=== PATIENT | male | born 1960 | race Caucasian/White ===

== ENCOUNTER 2017-09-28 05:37 | Outpatient (CLI) | payer BC ==
[~2017-09-28] VITALS: Ht 170.2 cm; Wt 72.1 kg
[~2017-09-28 05:37] MED LIST: CLIN150C17 PO; IBUP-16 PO
[2017-09-28] MEDS ORDERED: FLUT9.9S NSEACH (12:29)
== END 2017-09-28 12:30 ==
LOC: PREOP 05:37
PROVIDERS: ATTEND Surgery
DX: Z01.818 Encounter for other preprocedural examination (principal); K92.1 Melena

== ENCOUNTER 2017-10-03 09:39 | Day surgery (SDC) | payer BC ==
[~2017-10-03] VITALS: Ht 170.2 cm; Wt 72.1 kg
[~2017-10-03 09:39] MED LIST changes: +FLUT9.9S NSEACH
--- OUTSIDE RECORDS SUMMARY | 2017-10-03 09:43 | XMS REPORT | Clinical Summary ---
Author Author [facility] Organization [facility] Address Unknown Phone Unavailable Care Team Providers Care House Registry Rn Name Role Phone Roverto Cameron MD PCP Natalie Tran RN 2 Unavailable Tian Hyatt MD Unavailable Luis Fernando Chamberlain MD Unavailable Hope Calix RN Unavailable Unavailable Sj Jacobs RN 2 Unavailable Arthur Busch MD Unavailable [place] APRN Unavailable Mychart, Generic Provider Unavailable Unavailable Source Comments Some departments are not documenting in the electronic medical record. If you do not see the information that you expected, contact Release of Information in the Health Information Management department at [phone] for further assistance in locating additional records.[facility] Allergies Active Allergy Reactions Severity Noted Date Comments Meperidine NAUSEA AND VOMITING Low 10/10/2014 Morphine HIVES Medium 10/02/2014 Current Medications Prescription Sig. Disp. Refills Start End Date Status Date ibuprofen (MOTRIN) 200 mg Take 400 mg by mouth Active tablet every 6 hours as needed for Pain. acetaminophen (TYLENOL) Take 2 Tabs by mouth 30 Tab 1 05/01/20 Active 325 mg tablet every 4 hours as needed. 15 Active Problems Problem Noted Date Infection 04/27/2015 Pilon fracture 10/23/2014 Closed fracture of right tibia and fibula with routine healing 10/03/2014 Overview: - Ortho consulted - EX fix placed 10/02 - Plan for definitive repair 10/23 Closed fracture of left talus with routine healing 10/03/2014 Overview: - Ortho consulted Closed fracture of left tibia with routine healing 10/03/2014 Overview: - David 2 tibial plateau fx - Ortho consulted - EX fix placed 10/02 - Plan for definitive repair 10/23 Family History Medical History Relation Name Comments Heart Failure Father High Cholesterol Father Hypertension Father Stroke Father Arthritis-osteo Mother Relation Name Status Comments Father Mother Social History Tobacco Use Types Packs/Day Years Used Date Never Smoker Smokeless Tobacco: Never Used Tobacco Cessation: Counseling Given: Yes Alcohol Use Drinks/Week oz/Week Comments No 0 Standard 0.0 drinks or equivalent Sex Assigned at Date Recorded Not on file Last Filed Vital Signs Vital Sign Reading Time Taken Blood Pressure 145/83 11/03/2015 9:24 AM CDT Pulse 71 11/03/2015 9:24 AM CDT Temperature 36.3 C (97.3 F) 06/13/2015 9:11 AM GUARD ENTRANCE REGISTRAR Respiratory Rate 16 05/16/2015 2:43 PM GUARD ENTRANCE REGISTRAR Oxygen Saturation 96% 05/01/2015 2:45 PM GUARD ENTRANCE REGISTRAR Inhaled Oxygen - - Concentration Weight 78.5 kg (173 lb) 05/03/2016 9:42 AM GUARD ENTRANCE REGISTRAR Height 170.2 cm (5' 7") 05/03/2016 9:42 AM GUARD ENTRANCE REGISTRAR Body Mass Index 27.1 05/03/2016 9:42 AM GUARD ENTRANCE REGISTRAR Plan of Treatment Health Maintenance Due Date Last Done Comments HEPATITIS C SCREENING 1960 PHYSICAL (COMPREHENSIVE) 1967 EXAM PERTUSSIS VACCINE 1971 HIV SCREENING 1975 TETANUS VACCINE 1977 COLORECTAL CANCER 2010 SCREENING INFLUENZA VACCINE 02/27/2018 Results Not on filefrom Last 3 Months
--- OUTSIDE RECORDS SUMMARY | 2017-10-03 09:43 | XMS REPORT | Continuity of Care Document ---
Author Author [facility] Organization [facility] Address Unknown Phone Unavailable Allergies Active Description Code Type Severity Reaction Onset Reported/Identified Relationship to Patient Clinical Status Yes codeine [id number] Drug Allergy Mild N/A 04/11/2015 Yes morphine [id number] Drug Allergy Mild N/A 04/11/2015 Yes meperidine [id number] Drug Allergy Unknown N/A 04/11/2015 Medications There is no data. Problems Date Dx Coded Attending Type Code Diagnosis Diagnosed By 10/01/2014 FAY GALINDO DO Ot 823.00 FX UPPER END TIBIA-CLOSE 10/01/2014 FAY GALINDO DO Ot 823.01 FX UPPER END FIBULA-CLOS 10/01/2014 FAY GALINDO DO Ot 824.8 FX ANKLE NOS-CLOSED 10/01/2014 FAY GALINDO DO Ot 825.21 FX ASTRAGALUS-CLOSED 10/01/2014 FAY GALINDO DO Ot 959.7 LOWER LEG INJURY NOS 10/01/2014 FAY GALINDO DO Ot E000.8 OTHER EXTERNAL CAUSE STATUS 10/01/2014 FAY GALINDO DO Ot E016.9 OT ACT INVG [facility] 10/01/2014 FAY GALINDO DO Ot E849.0 ACCIDENT IN HOME 10/01/2014 FAY GALINDO DO Ot E882 FALL FROM BUILDING 04/15/2015 PATO UGALDE, ARTURO R Ot L03.115 CELLULITIS OF RIGHT LOWER LIMB 04/17/2015 PATO UGALDE, ARTURO R Ot L03.115 04/18/2015 PATO UGALDE, ARTURO R Ot L03.115 04/19/2015 PATO UGALDE, ARTURO R Ot L03.115 04/20/2015 PATO UGALDE, ARTURO R Ot L03.115 04/23/2015 PATO UGALDE, ARTURO R Ot L03.115 05/15/2015 PATO UGALDE, ARTURO R Ot L03.115 05/21/2015 JAYCE UGALDE, ILIANA A Ot E87.8 05/21/2015 FREDERIC UGALDE, DORON B Ot M86.9 06/03/2015 FREDERIC UGALDE, DORON B Ot M86.9 06/03/2015 FREDERIC UGALDE, DORON Jeffrey Ot M86.9 06/11/2015 FREDERIC UGALDE, DORON Jeffrey Ot M86.9 06/11/2015 FREDERIC UGALDE, DORON B Ot M86.9 06/27/2015 FREDERIC UGALDE, DORON B Ot M86.9 07/15/2015 PATO UGALDE, ARTURO R Ot L03.115 CELLULITIS OF RIGHT LOWER LIMB 06/04/2016 FREDERIC UGALDE, DORON Jeffrey Ot M86.9 OSTEOMYELITIS, UNSPECIFIED 06/04/2016 JAYCE UGALDE, ILIANA A Ot E87.8 OTH DISORDERS OF ELECTROLYTE AND FLUID B 06/04/2016 DORON DE LA GARZA MD Ot M86.9 OSTEOMYELITIS, UNSPECIFIED 06/04/2016 FREDERIC UGALDE, DORON Jeffrey Ot M86.9 OSTEOMYELITIS, UNSPECIFIED 06/04/2016 FREDERIC UGALDE, DORON Jeffrey Ot M86.9 OSTEOMYELITIS, UNSPECIFIED 06/04/2016 FREDERIC UGALDE, DORON Jeffrey Ot M86.9 OSTEOMYELITIS, UNSPECIFIED 06/04/2016 FREDERIC UGALDE, DORON Jeffrey Ot M86.9 OSTEOMYELITIS, UNSPECIFIED 06/04/2016 PATO UGALDE, ARTURO R Ot L03.115 CELLULITIS OF RIGHT LOWER LIMB 06/07/2016 DORON DE LA GARZA MD Ot M86.9 OSTEOMYELITIS, UNSPECIFIED 06/07/2016 JAYCE UGALDE, ILIANA A Ot E87.8 OTH DISORDERS OF ELECTROLYTE AND FLUID B 06/07/2016 DORON DE LA GARZA MD Ot M86.9 OSTEOMYELITIS, UNSPECIFIED 06/07/2016 DORON DE LA GARZA MD Ot M86.9 OSTEOMYELITIS, UNSPECIFIED 06/07/2016 DORON DE LA GARZA MD Ot M86.9 OSTEOMYELITIS, UNSPECIFIED 06/07/2016 DORON DE LA GARZA MD Ot M86.9 OSTEOMYELITIS, UNSPECIFIED 06/07/2016 DORON DE LA GARZA MD Ot M86.9 OSTEOMYELITIS, UNSPECIFIED 06/07/2016 PATO UGALDE, ARTURO R Ot L03.115 CELLULITIS OF RIGHT LOWER LIMB 12/09/2016 DORON DE LA GARZA MD B Ot M86.9 OSTEOMYELITIS, UNSPECIFIED 12/09/2016 JAYCE UGALDE, ILIAAN A Ot E87.8 OTH DISORDERS OF ELECTROLYTE AND FLUID B 12/09/2016 FREDERIC UGALDE, DORON B Ot M86.9 OSTEOMYELITIS, UNSPECIFIED 12/09/2016 DORON DE LA GARZA MD B Ot M86.9 OSTEOMYELITIS, UNSPECIFIED 12/09/2016 DORON DE LA GARZA MD B Ot M86.9 OSTEOMYELITIS, UNSPECIFIED 12/09/2016 DORON DE LA GARZA MD B Ot M86.9 OSTEOMYELITIS, UNSPECIFIED 12/09/2016 DORON DE LA GARZA MD B Ot M86.9 OSTEOMYELITIS, UNSPECIFIED 12/09/2016 PATO UGALDE, ARTURO R Ot L03.115 CELLULITIS OF RIGHT LOWER LIMB 12/16/2016 DORON DE LA GARZA MD B Ot M86.9 OSTEOMYELITIS, UNSPECIFIED 12/16/2016 JAYCE UGALDE, ILIANA A Ot E87.8 OTH DISORDERS OF ELECTROLYTE AND FLUID B 12/16/2016 DORON DE LA GARZA MD B Ot M86.9 OSTEOMYELITIS, UNSPECIFIED 12/16/2016 DORON DE LA GARZA MD B Ot M86.9 OSTEOMYELITIS, UNSPECIFIED 12/16/2016 DORON DE LA GARZA MD B Ot M86.9 OSTEOMYELITIS, UNSPECIFIED 12/16/2016 DORON DE LA GARZA MD B Ot M86.9 OSTEOMYELITIS, UNSPECIFIED 12/16/2016 DORON DE LA GARZA MD B Ot M86.9 OSTEOMYELITIS, UNSPECIFIED 12/16/2016 PATO UGALDE, ARTURO R Ot L03.115 CELLULITIS OF RIGHT LOWER LIMB 09/27/2017 DORON DE LA GARZA MD B Ot M86.9 OSTEOMYELITIS, UNSPECIFIED 09/27/2017 JAYCE UGALDE, ILIANA A Ot E87.8 OTH DISORDERS OF ELECTROLYTE AND FLUID B 09/27/2017 DORON DE LA GARZA MD B Ot M86.9 OSTEOMYELITIS, UNSPECIFIED 09/27/2017 DORON DE LA GARZA MD Ot M86.9 OSTEOMYELITIS, UNSPECIFIED 09/27/2017 DORON DE LA GARZA MD Ot M86.9 OSTEOMYELITIS, UNSPECIFIED 09/27/2017 DORON DE LA GARZA MD Ot M86.9 OSTEOMYELITIS, UNSPECIFIED 09/27/2017 DORON DE LA GARZA MD Ot M86.9 OSTEOMYELITIS, UNSPECIFIED 09/27/2017 PATO UGALDE, ARTURO R Ot L03.115 CELLULITIS OF RIGHT LOWER LIMB 09/28/2017 PATO UGALDE, ARTURO R Ot L03.115 CELLULITIS OF RIGHT LOWER LIMB 09/28/2017 LUIS UGALDE, MARLON Bang Ot K92.1 MELENA 09/28/2017 LUIS UGALDE, MARLON Bang Ot Z01.818 ENCOUNTER FOR OTHER PREPROCEDURAL EXAMIN 09/29/2017 MARLON SMITH MD Ot K92.1 MELENA 09/29/2017 LUIS UGALDE, MARLON Bang Ot Z01.818 ENCOUNTER FOR OTHER PREPROCEDURAL EXAMIN 09/29/2017 FREDERIC UGALDE, DORON Jeffrey Ot M86.9 OSTEOMYELITIS, UNSPECIFIED 09/29/2017 JAYCE UGALDE, ILIANA A Ot E87.8 OTH DISORDERS OF ELECTROLYTE AND FLUID B 09/29/2017 FREDERIC UGALDE, DORON Jeffrey Ot M86.9 OSTEOMYELITIS, UNSPECIFIED 09/29/2017 DORON DE LA GARZA MD Ot M86.9 OSTEOMYELITIS, UNSPECIFIED 09/29/2017 FREDERIC UGALDE, DORON Jeffrey Ot M86.9 OSTEOMYELITIS, UNSPECIFIED 09/29/2017 FREDERIC UGALDE, DORON Jeffrey Ot M86.9 OSTEOMYELITIS, UNSPECIFIED 09/29/2017 FREDERIC UGALDE, DORON Jeffrey Ot M86.9 OSTEOMYELITIS, UNSPECIFIED 09/29/2017 PATO UGALDE, ARTURO Patel Ot L03.115 CELLULITIS OF RIGHT LOWER LIMB Procedures There is no data. Results There is no data. Encounters ACCT No. Visit Date/Time Discharge Status Pt. Type Provider Facility Loc./Unit Complaint [id number] 09/28/2017 05:37:00 09/28/2017 12:30:00 DIS Outpatient MARLON SMITH MD [facility] PREOP COLONOSCOPY [id number] 07/16/2015 00:08:00 07/16/2015 23:59:59 CLS Preadmit ARTURO WHYTE MD [facility] CELLULITIS R LOWER LIMB [id number] 04/20/2015 09:15:00 07/15/2015 00:01:00 DIS Outpatient ARTURO WHYTE MD [facility] CELLULITIS R LOWER LIMB [id number] 06/09/2015 12:34:00 06/09/2015 23:59:59 CLS Outpatient DORON DE LA GARZA MD [facility] OSTEOMYLITIS OF THE RIGHT TIBIA [id number] 06/02/2015 12:13:00 06/02/2015 23:59:59 CLS Outpatient DORON DE LA GARZA MD [facility] OSTEOMYLITIS OF THE RIGHT TIBIA [id number] 05/26/2015 14:00:00 05/26/2015 23:59:59 CLS Outpatient DORON DE LA GARZA MD [facility] OSTEOMYLITIS OF THE TIBIA R [id number] 05/19/2015 17:29:00 05/19/2015 23:59:59 CLS Outpatient DORON DE LA GARZA MD [facility] OSTEOMYLITIS OF THE RIGHT TIBIA [id number] 05/12/2015 13:08:00 05/12/2015 23:59:59 CLS Outpatient DORON DE LA GARZA MD [facility] OSTEOMYLITIS OF THE TIBIA (R) [id number] 05/08/2015 14:16:00 05/08/2015 23:59:59 CLS Outpatient ILIANA EDUARDO MD [facility] ABNORMAL POTASSIUM AND CREATININE [id number] 05/05/2015 09:09:00 05/05/2015 23:59:59 CLS Outpatient DORON DE LA GARZA MD [facility] OSTEOMYLITIS OF THE TIBIA (R) [id number] 04/11/2015 11:11:00 04/15/2015 10:35:00 DIS Inpatient PATO UGALDE, ARTURO R [facility] 4TH CELLULITIS RIGHT LOWER EXTREMITY [id number] 10/01/2014 19:34:00 10/01/2014 22:01:00 DIS Emergency FAY GALINDO DO [facility] ER FALL;R HIP PAIN [id number] 09/25/2013 22:53:00 09/25/2013 23:11:00 DIS Emergency [id number] 10/03/2017 11:00:00 PEN Preadalivia SMITH MD, MARLON Bang [facility] ENDO HEMATOCHEZIA
[2017-10-03] MEDS ORDERED: NS IV 500 ML 500 ML ONE (09:49)
[2017-10-03] MEDS ORDERED: NS IV 500 ML 500 ML IV PRN (09:50)
--- NOTE | 2017-10-03 09:54 | History & Physicial ---
History of Present Illness History of Present Illness Reason for visit/HPI to undergo colonoscopy to investigate hematochezia Date of Admission 10/03/17 Date Seen by Provider: October 03, 2017 Time Seen by Provider: 09:53 I consulted on this patient on 10/03/17 09:52 Attending Physician Marlon Smith MD Admitting Physician Roverto Cameron MD Consult Allergies and Home Medications Allergies Coded Allergies: codeine (Verified Allergy, Mild, 04/11/15) meperidine (Verified Allergy, Unknown, 04/11/15) Home Medications Fluticasone Propionate 9.9 Ml [place].susp, 1 SPRAY NSEACH DAILY, (Reported) 1 SPRAY EACH NARE DAILY Patient Home Medication List Home Medication List Reviewed: Yes Past Kbeywcn-Swgscn-Prtyth Hx Patient Social History Marrital Status: Employed/Student: employed Former Smoker, Quit: September 28, 1997 Recent Foreign Travel: No Contact w/other who traveled: No Recent Hopitalizations: No Seasonal Allergies Seasonal Allergies: Yes Surgeries Yes Orthopedic Respiratory Currently Using CPAP: No Currently Using BIPAP: No Reproductive System Hx Reproductive Disorders: No Sexually Transmitted Disease: No Genitourinary No Gastrointestinal Yes Abdominal Hernia, Gastrointestinal Bleed Musculoskeletal No Fractures HEENT History of HEENT Disorders: No Family Medical History Significant Family History: No Pertinent Family Hx Family Hx: Cardiovascular disease 19 FATHER Completed stroke 19 FATHER Myocardial infarction 19 FATHER Parkinson's disease 19 FATHER Respiratory disorder 19 MOTHER Constitutional: no symptoms reported EENTM: no symptoms reported Respiratory: no symptoms reported Cardiovascular: no symptoms reported Gastrointestinal: see HPI Genitourinary: no symptoms reported Musculoskeletal: joint pain Skin: no symptoms reported Psychiatric/Neurological: No Symptoms Reported Physical Exam Vital Signs Capillary Refill : General Appearance: No Apparent Distress Neck: Normal Inspection Respiratory: Lungs Clear Cardiovascular: Regular Rate, Rhythm Gastrointestinal: Non Tender, Soft Rectal: Deferred Back: Normal Inspection Extremity: Normal Inspection Neurologic/Psychiatric: Alert, Oriented x3 Skin: Warm/Dry Assessment/Plan Assessment and Plan gentleman with hematochezia. For colonoscopy Admission Diagnosis Admission Status: Other (Outpt Proc) MARLON SMITH MD October 03, 2017 9:54 am
--- NOTE | 2017-10-03 09:54 | Conscious Sedation/ASA ---
Conscious Sedation Pre-Proced Time Reviewed: 09:54 ASA Class: 2 Airway Mallampati Classification: ([place] appropriate class) I. II. III, IV Lungs Heart ASA score ASA 1: a normal healthy patient ASA 2: a patient with a mild systemic disease (mid diabetes, controlled hypertension, obesity ASA 3: a patient with a severe systemic disease that limits activity (angina , COPD, prior Myocardial infarction) ASA 4: a patient with an incapacitating disease that is a constant threat to life (CHF, renal failure) ASA 5: a moribund patient not expected to survive 24 hrs. (ruptured aneurysm) ASA 6: a declared brain patient whose organs are being harvested. For emergent operations, add the letter E after the classification Grade 1 Sedation Plan: Discussed options with patient/fam Note The patient is an appropriate candidate to undergo the planned procedure, sedation, and anesthesia. The patient immediately re-assessed prior to indication. MARLON SMITH MD October 03, 2017 9:54 am
[2017-10-03 10:05] VITALS: BP 122/82
[2017-10-03] MEDS ORDERED: fentaNYL INJECTION 100 MCG/2 ML AMP ONE ×2 (11:08)
[2017-10-03] MEDS ORDERED: MIDAZOLAM 2 MG/2 ML (VERSED) VIAL ONE ×3 (11:08)
[2017-10-03] MEDS: fentaNYL INJECTION 100 MCG/2 ML AMP IVP PRN ×4 (11:13→11:30)
[2017-10-03] MEDS: MIDAZOLAM 2 MG/2 ML (VERSED) VIAL IVP PRN ×3 (11:18→11:25)
--- NOTE | 2017-10-03 11:43 | Endo Procedure Record ---
Endo Procedure Report Date of Procedure Last Colonoscopy: No October 03, 2017 Surgeon (s) MARLON SMITH MD Post Procedure/Op Diagnosis Mild internal hemorrhoids Sigmoid diverticulosis Procedure Performed Colonoscopy to cecum Description of Procedure Anesthesia Type: Conscious Sedation (None) Specimen(s) collected/removed none Description of the Procedure Indication for the procedure: This gentleman came in for colonoscopy to evaluate intermittent rectal bleeding. Informed consent was obtained after reviewing the procedures in detail. Description of procedure: He was placed in left lateral decubitus position and his vital signs are monitored. Conscious sedation was achieved using Versed and fentanyl. Examination of the perianal area revealed some external hemorrhoids. Digital examination was otherwise unremarkable. The colonoscope was then introduced into the rectum and advanced all the way up to the cecum. The scope was then withdrawn slowly and the mucosa examined in a systematic fashion. Findings: 1. A mild degree of internal hemorrhoids, the possible source of his bleeding 2. Very few sigmoid diverticula. No polyps were found He tolerated the procedure well and was taken back to the nursing area in a stable condition. Impression: Rectal bleeding due to hemorrhoids. Recommend conservative therapy. Screening colonoscopy in 10 years Copy Copies To 1: ARTURO WHYTE MD, XAVIER M MD October 03, 2017 11:43 am
--- NOTE | 2017-10-03 11:45 | Discharge Inst-Simple/Standard ---
Discharge Inst-Standard Discharge Medications New, Converted or Re-Newed RX: Other Patient Instructions/Follow Up Plan of Care/Instructions/FU: Stool softeners if needed.Screening colonoscopy in 10 years Activity as Tolerated: Yes Discharge Diet: No Restrictions MARLON SMITH MD October 03, 2017 11:45 am
[2017-10-03 12:15] VITALS: BP 132/66
[2017-10-03 12:38] VITALS: BP 121/84
[2017-10-03 12:49] VITALS: BP 121/84
== END 2017-10-03 12:50 | disposition home or self-care (01) ==
LOC: ENDO 09:39
PROVIDERS: ATTEND Surgery
DX: K64.8 Other hemorrhoids (principal); K57.30 Diverticulosis of large intestine without perforation or abscess without bleeding; Z87.891 Personal history of nicotine dependence

== ENCOUNTER → 2020-11-18 | Outpatient (CLI) | payer BC ==
[~2020-11-18] MED LIST changes: +CATHETER FLUSH 10 ML SYR IV PRN; -CLIN150C17 PO; +CLIN150C18 PO
--- NOTE | 2020-11-18 09:34 | Diagnostic Imaging Report ---
INDICATION: FAMILY HISTORY OF AORTIC ANEURYSM TECHNIQUE: Grayscale sonographic images of the abdominal aorta. CORRELATION STUDY: None FINDINGS: Abdominal Aorta Proximal: 2.4 x 1.9 cm Mid: 1.7 x 2.0 cm Distal: 1.4 x 1 point cm Common Iliac Arteries Right JETHRO: 0.9 x 1.2 cm Left JETHRO: 0.9 x 1.1 cm IMPRESSION: 1. Negative for abdominal aortic aneurysm. Dictated by: Dictated on workstation # [id number]
--- NOTE | 2020-11-18 17:21 | Diagnostic Imaging Report ---
INDICATION: Pain and swelling in the right tibia and fibula region. Patient has a prior history of trauma to the right tibia and fibula with hardware insertion in March 2015. Hardware was removed in April 2015. The patient was administered 26.4 mCi technetium 99m MDP intravenously and dynamic blood flow, blood pool and delayed imaging over bilateral lower extremities was performed. There appears to be symmetric blood flow to bilateral lower extremities. The blood pool and delayed images are unremarkable and appear fairly symmetric bilaterally. No findings to suggest osteomyelitis are identified. Uptake at the ankles on the delayed images is noted bilaterally and may be degenerative. IMPRESSION: No evidence of osteomyelitis. Dictated by: Dictated on workstation # [id number]
== END ==
LOC: CARD 07:52
PROVIDERS: ATTEND Family Medicine
DX: M79.661 Pain in right lower leg (principal); M79.89 Other specified soft tissue disorders; Z82.49 Family history of ischemic heart disease and other diseases of the circulatory system
CPT/HCPCS: 76775; 78315; 93306; A9503